=== PATIENT | female | born 1945 | race Caucasian/White ===

== ENCOUNTER 2016-09-05 10:20 | Outpatient (CLI) | payer OTHER ==
[~2016-09-05 10:20] MED LIST: COMBIVENT RESPIMAT IN; FUROSEMIDE20 MG PO; METHADONE HCL10 MG PO; METHOCARBAMOL500 MG PO; NEURONTIN100 MG PO; NORCO1 TAB PO; QVAR80 MCG IN; VOLTAREN1 % TOP
--- NOTE | 2016-09-05 12:07 | DIAGNOSTIC IMAGING REPORT ---
PROCEDURE: CT LOW-DOSE LUNG CA SCREENING CLINICAL INDICATION: LUNG CA SCREENING TECHNIQUE: Low-dose helical CT images of the lungs without contrast were obtained and reconstructed at 2.5 mm intervals. MIP reformations in coronal and sagittal planes were created. Radiation dose 1.38 mGy. COMPARISON: Oldest available comparison: CT thorax 06/05/2013 FINDINGS: NODULES: Location: Right upper lobe nodule; image location: 15; size: 4 mm; composition: Ground glass Location: Right upper lobe; image location: 25; size: 4 mm ; composition: Ground-glass Location: Right upper lobe; image location: 27; size: 4 mm; composition: Ground-glass Location: Right lower lobe; image location: 60; size: 3 mm; composition: Ground-glass, stable Location: Left upper lobe; image location: 16; size: 4 mm; composition: Ground-glass Location: Left upper lobe; image location: 23; size: 3 mm; composition: Ground-glass Location: Left upper lobe; image location: 30; size: 4 mm; composition ground-glass Location: Left lower lobe; image location: 61; size: 4 mm; composition ground-glass, stable OTHER LUNG FINDINGS: Mild emphysema. AIRWAY: Branches normally without narrowing or endobronchial nodule. PLEURA: No effusions, thickening, or pneumothorax. AORTA AND GREAT VESSELS: Normal caliber, mild atherosclerotic calcification. PULMONARY ARTERIES: Normal. . HEART AND PERICARDIUM: Normal size without effusion, thickening. LYMPH NODES: No enlarged nodes visible. THORACIC SPINE: No suspicious lesion. Moderate degenerative changes. CHEST WALL: Normal. VISUALIZED UPPER ABDOMEN: Normal. IMPRESSION: 1. Mild emphysema 2. Stable 3 mm right lower lobe and 4 mm left lower lobe nodules 3. Several new small bilateral pulmonary nodules (4 mm or less), which are nonspecific and may represent post inflammatory changes. Neoplastic change are not excluded. 4. Category 3, probably benign. Recommend LDCT in [address] scans at this facility use dose modulation, iterative reconstruction, and/or weight-based dosing when appropriate to reduce radiation dose to as low as reasonably achievable.
== END 2016-09-05 23:00 ==
LOC: CT SRH 10:20
DX: Z12.2 Encounter for screening for malignant neoplasm of respiratory organs (principal); F17.210 Nicotine dependence, cigarettes, uncomplicated; R91.8 Other nonspecific abnormal finding of lung field

== ENCOUNTER 2016-11-22 09:29 | Outpatient (CLI) | payer OTHER ==
--- NOTE | 2016-11-22 11:17 | DIAGNOSTIC IMAGING REPORT ---
PROCEDURE: MR LUMBAR SPINE W/O CONTRAST INDICATION: SPINAL STENOSIS,LUMBAR TECHNIQUE: T1, T2, and STIR sagittal sequences. T2 and T1 axial sequences. COMPARISON: 01/14/2015 FINDINGS: Alignment and curvature: Grade 1 anterolisthesis L3-4 and L4-5, stable. Vertebral bodies: Type 2 modic changes in the endplates at the L5-S1 level. Vertebral body heights are normal. T12 hemangioma. Disc spaces: Moderate to significant L5-S1 disc space loss, similar compared to the previous study. Mild disc space loss L3-4 and L4-5, also stable. Spinal canal: Conus terminates at L1-2. No unusual central canal mass. Paraspinal soft tissues: Upper pole right renal cyst. L1-2: Mild to moderate facet arthropathy. No change. L2-3: Mild diffuse circumferential disc bulge. Mild to moderate facet arthropathy. No change. L3-4: Moderate to extensive facet arthropathy and ligamentum flavum hypertrophy. Moderate circumferential disc bulge. Extensive ligamentum flavum hypertrophy similar compared to the prior study. Severe central canal stenosis. There is obliteration of the CSF space. Moderate right, and moderate to severe left foraminal narrowing, stable. L4-5: Severe facet arthropathy and extensive ligamentum flavum hypertrophy. Moderate circumferential disc bulge flattening anterior CSF space. The ligamentum flavum encroaches on the dorsal CSF space. Moderate to severe central canal stenosis and lateral recess narrowing, right worse than left. Mild right, and mild to moderate left foraminal narrowing, unchanged. L5-S1: Moderate facet arthropathy. Mild broad base posterior disc bulge. No significant change. IMPRESSION: 1. Chronic moderate to severe central canal stenosis at L3-4 and L4-5 secondary to disc bulge and fairly extensive facet and ligamentum flavum hypertrophy. 2. Stable bilateral lateral recess and foraminal narrowing at L3-4 an L4-5.
== END 2016-11-22 23:00 ==
LOC: MRI SRH 09:29
DX: M51.26 Other intervertebral disc displacement, lumbar region (principal); M46.06 Spinal enthesopathy, lumbar region